=== PATIENT | female | born 1995 | race Caucasian/White ===

== ENCOUNTER 2020-08-27 16:23 | Emergency (ER) | payer MEDICAID ==
[~2020-08-27 16:23] MED LIST: LITH300C PO; LURA120T PO; PRAZ2CAP2 PO
== END 2020-08-27 18:17 | disposition left against medical advice (07) ==
LOC: ER 16:23
DX: R79.9 Abnormal finding of blood chemistry, unspecified (principal); Z53.21 Procedure and treatment not carried out due to patient leaving prior to being seen by health care provider